=== PATIENT | female | born 1980 | race Caucasian/White ===

== ENCOUNTER 2025-02-20 23:38 | Emergency (ER) | payer OTHER ==
[~2025-02-20] VITALS: Ht 154.9 cm; Wt 111.6 kg
[2025-02-21 01:21] VITALS: BP 115/73; PULSE 79; RESP 20; RESP 22; TEMP 98.5; O2SAT 97
[2025-02-21] MEDS ORDERED: TORADOL ONE (02:07)
[2025-02-21] MEDS: TORADOL IM STA (02:13)
[2025-02-21 03:13] VITALS: BP 113/59; PULSE 79; RESP 18; O2SAT 98
== END 2025-02-21 03:13 | disposition home or self-care (01) ==
LOC: ER 23:38
DX: S59.902A Unspecified injury of left elbow, initial encounter (principal); Z88.0 Allergy status to penicillin; Z88.1 Allergy status to other antibiotic agents; Z88.2 Allergy status to sulfonamides; W18.39XA Other fall on same level, initial encounter; Y93.89 Activity, other specified; Y92.098 Other place in other non-institutional residence as the place of occurrence of the external cause; Y99.8 Other external cause status
CPT/HCPCS: 99284; 96372; 73070; J1885